=== PATIENT | male | born 1995 | race Hispanic/Latino ===

== ENCOUNTER 2020-02-15 15:33 | Emergency (ER) | payer SELFPAY ==
[~2020-02-15] VITALS: Ht 177.8 cm; Wt 117.9 kg
[2020-02-15] MEDS ORDERED: AMLODIPINE BESYLATE 5 MG TAB PO ONE ×2 (16:00→17:00)
--- NOTE | 2020-02-15 16:06 | Emergency Department Note ---
History of Present Illnes History of Present Illness Chief Complaint: Chest Pain History of Present Illness This is a 24 year old male PT STATES HE HAS BEEN HAVING MIDSTERNAL BURNING SINC E SUNDAY. PT STATES THE BURNING PAIN SENSATION IS PRESENT WHEN HE EATS OR DRINKS, BURPS UP "ACID" AT TIMES. PT STATES THAT HE HAS NO PMH, BUT ONCE WHEN HE HAD A PRIMARY MD, THE MD PUT HIM ON BP MEDICATION. PT STATES HE HASN'T TAKEN BP MEDICATION IN YEARS BECAUSE HE "RAN OUT". PT NOTES HE HAS FAMILY HISTORY OF HTN. PT BP IS 162/108 IN TRIAGE. Historian: Patient Arrival Mode: Car Ballaster Required: No Onset (how long ago): day(s) (4) Location: MID LINE CHEST Quality: BURNING Radiation: Reports non-radiation Severity: moderate Onset quality: sudden Timing of current episode: intermittent Progression: waxing and waning (ONLY WITH EATING) Chronicity: new Context: Denies recent illness Relieving factors: none Exacerbating factors: eating Associated symptoms: Reports denies other symptoms Past Medical/Family History Physician Review I have reviewed the patient's past medical and family history. Any updates have been documented here. Past Medical History Recent Fever: No Clinical Suspicion of Infectio: No New/Unexplained Change in Ment: No Past Medical History: Hypertension Past Surgical History: None Social History Smoking Cessation: Current some day smoker (NO CIGARETTES) Counseling Performed: Yes Alcohol Use: Social Any Illegal Drug Use: Yes (THC) TB Exposure/Symptoms: No Physically hurt or threatened: No Family History Family history of heart diseas: No Other Any Pre-Existing Lines (PICC,: No Review of Systems Review of Systems Constitutional: Reports no symptoms EENTM: Reports no symptoms Cardiovascular: Reports as per HPI Respiratory: Reports no symptoms Gastrointestinal: Reports as per HPI Genitourinary: Reports no symptoms Musculoskeletal: Reports no symptoms Integumentary: Reports no symptoms Neurological: Reports no symptoms Psychological: Reports no symptoms Endocrine: Reports no symptoms Hematological/Lymphatic: Reports no symptoms Physical Exam Related Data Allergies: Coded Allergies: No Known Allergies (Unverified , 02/15/20) Triage Vital Signs Vital Signs Date Time Temp Pulse Resp B/P (MAP) Pulse Ox O2 Delivery O2 Flow Rate FiO2 02/15/20 15:49 98.0 99 16 162/108 98 Room Air Vital signs reviewed: Yes Physical Exam CONSTITUTIONAL Constitutional: Present well-developed, Present well-nourished, Present obese HENT HENT: Present normocephalic, Present atraumatic, Present oropharynx clear/moist, Present nose normal HENT L/R: Present left ext ear normal, Present right ext ear normal EYES Eyes: Reports PERRL, Reports conjunctivae normal NECK Neck: Present ROM normal PULMONARY Pulmonary: Present effort normal, Present breath sounds normal CARDIOVASCULAR Cardiovascular: Present regular rhythm, Present heart sounds normal, Present capillary refill normal, Present normal rate, Present other (NO REPRODUCIBLE TENDERNESS) GASTROINTESTINAL Abdominal: Present soft, Present nontender, Present bowel sounds normal GENITOURINARY Genitourinary: Present exam deferred SKIN Skin: Present warm, Present dry MUSCULOSKELETAL Musculoskeletal: Present ROM normal NEUROLOGICAL Neurological: Present alert, Present oriented x 3, Present no gross motor or sensory deficits PSYCHOLOGICAL Psychological: Present mood/affect normal, Present judgement normal Procedures 12 Lead ECG Interpretation ECG Interpretation : ECG: ECG 1 Ballaster: Interpreted by ED physician Date: Feb 15, 2020 Time: 15:37 Rhythm: sinus rhythm Rate: normal (75) QRS axis: normal ST segments normal: Yes T waves normal: Yes Other findings: LVH Clinical Impression: normal ECG (EXCEPT LVH) Assessment & Plan Medical Decision Making MDM GERD SX'S BUT H/O HTN AND NON-COMPLIANT WITH MEDS - I D/W PT IMPORTANCE OF F/U WITH PCP & LIKELY DAILY LIFE-LONG HTN MEDS TO PREVENT COMPLICATIONS SUCH AR, CVA, RENAL FAILURE, BLINDNESS, , ETC. HE UNDERSTANDS AND WILL F/U. Reassessment Reassessment DC HOME WITH NORVASC 5 MG PO QDAY (#30), OTC PEPCID COMPLETE, PROTONIX 40 QDAY, F/U PCP Assessment & Plan Final Impression: (1) GERD (gastroesophageal reflux disease) (2) HTN (hypertension) Depart Disposition: HOME, SELF-CARE Last Vital Signs Date Time Temp Pulse Resp B/P (MAP) Pulse Ox O2 Delivery O2 Flow Rate FiO2 02/15/20 15:49 98.0 99 16 162/108 98 Room Air Medications in the ED Amlodipine Besylate 5 mg ONCE ONCE PO ; Start 02/15/20 at 16:00; Stop 02/15/20 at 16:01; Status UNV ANGEL POSEY MD Feb 15, 2020 16:06
[2020-02-15 16:13] VITALS: BP 164/102
== END 2020-02-15 16:40 | disposition home or self-care (01) ==
LOC: ER 16:01
DX: K21.9 Gastro-esophageal reflux disease without esophagitis (principal); I10 Essential (primary) hypertension
CPT/HCPCS: 93005; 99282

== ENCOUNTER 2022-02-11 12:09 | Emergency (ER) | payer SELFPAY ==
[~2022-02-11] VITALS: Ht 177.8 cm; Wt 117.9 kg
[2022-02-11] MEDS ORDERED: KETOROLAC TROMETHAMINE 30 MG/ML VIAL IV STA (12:17)
[2022-02-11] MEDS ORDERED: ONDANSETRON HCL INJ 2MG/ML 2ML 2 MG/ML VIAL IV STA (12:17)
[2022-02-11] MEDS ORDERED: SODIUM CHLORIDE 0.9% 1000ML 1,000 ML IV ONE (12:30)
[2022-02-11 12:39] LABS: BASOPHILS % 0.4 % (0.0-1.0); EOSINOPHILS # (AUTO) 0.1 (0.0-0.4); EOSINOPHILS % 0.5 % (0.0-6.0); HEMATOCRIT 49.3 % (38.2-49.6); HEMOGLOBIN 16.8 g/dL (14.0-18.0); LYMPHOCYTES # (AUTO) 1.4 (1.0-3.2); LYMPHOCYTES % 12.8 % (18.0-39.1); MEAN CORPUSCULAR HEMOGLOBIN 29.3 pg (28-32); MEAN CORPUSCULAR HGB CONC 34.1 g/dL (31-35); MONOCYTES % 9.2 % (4.4-11.3); NEUTROPHILS # (AUTO) 8.5 (2.1-6.9); NEUTROPHILS % 76.6 % (38.7-80.0); PLATELET COUNT 278 x10e3/uL (140-360); RED BLOOD COUNT 5.73 x10e6/uL (4.3-5.7); RED CELL DISTRIBUTION WIDTH 12.9 % (11.7-14.4)
[2022-02-11 12:49] LABS: CLARITY,URINE CLEAR (CLEAR); COLOR,URINE YELLOW (YELLOW)
[2022-02-11 12:50] LABS: KETONES,URINE TRACE (NEGATIVE); LEUKOCYTE ESTERASE ,URINE NEGATIVE (NEGATIVE); NITRITE,URINE NEGATIVE (NEGATIVE); PROTEIN,URINE DIPSTICK NEGATIVE (NEGATIVE); URINE UROBILINOGEN 0.2 mg/dL (0.2 - 1)
[2022-02-11 12:51] LABS: BACTERIA,URINE RARE /HPF; HYALINE CASTS 0-1 (0-1); RBC,URINE 0-5 /HPF (0-5); WBC,URINE (MAN) 0-5 /HPF (0-5)
[2022-02-11 12:52] LABS: MUCUS,URINE FEW (RARE)
[2022-02-11 13:06] LABS: ALBUMIN 4.5 g/dL (3.5-5.0); ALBUMIN/GLOBULIN RATIO 1.1 (0.8-2.0); ANION GAP 17.9 mmol/L (8-16); CALCIUM 9.3 mg/dL (8.4-10.2); CREATININE, SERUM 0.98 mg/dL (0.72-1.25); POTASSIUM 3.9 mmol/L (3.5-5.1)
[2022-02-11] MEDS ORDERED: IOPAMIDOL 370 MG/ML 100 ML INFUS..BTL INJ ONE (13:34)
== END 2022-02-11 16:39 | disposition home or self-care (01) ==
LOC: ER 12:12
DX: R10.12 Left upper quadrant pain (principal); S39.011A Strain of muscle, fascia and tendon of abdomen, initial encounter; X50.1XXA Overexertion from prolonged static or awkward postures, initial encounter; I10 Essential (primary) hypertension
CPT/HCPCS: 36415; 74177; 76700; 80053; 81001; 83690; 85025; 99284; J1885; J2405; J7030; Q9967

== ENCOUNTER 2022-07-06 19:21 | Emergency (ER) | payer OTHER ==
[~2022-07-06] VITALS: Ht 180.3 cm; Wt 106.6 kg
[2022-07-06] MEDS ORDERED: CYCLOBENZAPRINE5 MG PO (21:58)
[2022-07-06] MEDS ORDERED: NAPROSYN500 MG PO (21:58)
[2022-07-07 01:23] VITALS: BP 135/90
== END 2022-07-06 22:15 | disposition home or self-care (01) ==
LOC: ER 19:35
DX: S39.012A Strain of muscle, fascia and tendon of lower back, initial encounter (principal); S29.012A Strain of muscle and tendon of back wall of thorax, initial encounter; V47.5XXA Car driver injured in collision with fixed or stationary object in traffic accident, initial encounter; Y92.488 Other paved roadways as the place of occurrence of the external cause; I10 Essential (primary) hypertension
CPT/HCPCS: 72070; 72100